=== PATIENT | female | born 2000 | race Caucasian/White ===

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

== ENCOUNTER 2021-07-05 22:20 | Emergency (ER) | payer BC, OTHER ==
[2021-07-05 22:32] VITALS: BP 118/77; PULSE 92; TEMP 99.6; BMI 21.4
== END 2021-07-05 23:19 | disposition home or self-care (01) ==
LOC: FER 22:20
DX: S93.401A Sprain of unspecified ligament of right ankle, initial encounter (principal); X50.0XXA Overexertion from strenuous movement or load, initial encounter
CPT/HCPCS: 73610-TC-RT-FY; 99283-25

== ENCOUNTER 2021-09-05 21:28 | Emergency (ER) | payer OTHER ==
[2021-09-05 22:03] VITALS: BP 109/76; PULSE 84; TEMP 97.8; BMI 21.4
[2021-09-05] MEDS ORDERED: IBUPROFEN 400 MG TABLET (FP) PO ONE (23:55)
[2021-09-06] MEDS ORDERED: IBUPROFEN 400 MG TABLET (FP) PO ONE (00:26)
== END 2021-09-06 01:07 | disposition home or self-care (01) ==
LOC: JER 21:28
DX: M06.89 Other specified rheumatoid arthritis, multiple sites (principal)
CPT/HCPCS: 99283-25